=== PATIENT | male | born 1975 ===

== ENCOUNTER 2018-12-02 09:11 | Emergency (ER) | payer OTHER ==
[~2018-12-02] VITALS: Ht 167.6 cm; Wt 77.1 kg
== END 2018-12-02 15:48 | disposition home or self-care (01) ==
LOC: ER 09:11
DX: I88.0 Nonspecific mesenteric lymphadenitis (principal); K76.0 Fatty (change of) liver, not elsewhere classified; R10.84 Generalized abdominal pain